=== PATIENT | male | born 1970 | race African-American/Black ===

== ENCOUNTER → 2017-06-03 | Outpatient (CLI) | payer OTHER ==
--- NOTE | 2017-06-03 15:06 | CT ---
EXAMINATION TYPE: CT abdomen pelvis wo con DATE OF EXAM: 06/03/2017 COMPARISON: NONE INDICATION: Rt flank pain DLP: 512.3 mGycm, Automated exposure control for dose reduction was used. CONTRAST: 0 mL of Omnipaque 350. Study performed without Oral Contrast TECHNIQUE: Axial images were obtained from above the diaphragm to the pubic rami in the axial plane a t 5 mm thick sections. Reconstructed images are reviewed on the computer in the coronal plane. FINDINGS: Limited CT sections are obtained the lung bases. The lung bases are clear. CT ABDOMEN: Liver: Normal Spleen: Normal Pancreas: Normal Adrenal glands: The adrenal glands are normal. Gallbladder: Normal Kidneys: No masses are evident. No hydronephrosis is present. No cysts are present. No renal stone s are identified. Aorta: Normal Inferior vena cava: Normal. CT PELVIS: Loops of bowel within the abdomen and pelvis are normal. Studies performed without oral contrast. Appendix: Normal as visualized. Urinary bladder: Normal. Genitourinary structures: Prostate is unremarkable. Osseous structures: No suspicious lytic or sclerotic lesions. There are couple small sclerotic lesion s superior to the left acetabulum could be bone islands. Facet degenerative changes within the lower lumbar spine. IMPRESSIONS: 1. No suspicious acute changes.
== END | disposition home or self-care (01) ==
LOC: RADCTMAIN 12:28
PROVIDERS: ATTEND Internal Medicine
DX: R10.9 Unspecified abdominal pain (principal)
CPT/HCPCS: 74176

== ENCOUNTER → 2017-07-07 | Outpatient (CLI) | payer OTHER ==
--- NOTE | 2017-07-07 18:04 | MR ---
EXAMINATION TYPE: MR lumbar spine wo con DATE OF EXAM: 07/07/2017 COMPARISON: NONE HISTORY: Low back pain CONTRAST: 0 mL intravenous Gadavist. TECHNIQUE: Multiplanar, multisequence images of the lumbar spine were acquired. FINDINGS: L5-S1: There is narrowing of the disc height. Disc desiccation is present. No focal disc herniation i s evident. Some disc bulge is present with contact with the exiting nerve roots. No thecal sac compre ssion is evident. Right neural foramen is patent. Right neural foramen has severe narrowing from face t and disc bulge. L4-L5: No significant disc bulge or disc herniation. No spinal canal stenosis. No foraminal stenosi s. Facet hypertrophy is present.. L3-L4: No disc bulge or herniation is evident. There is disc space narrowing and some disc desiccatio n No spinal canal stenosis. No foraminal stenosis. . L2-L3: No significant disc bulge or disc herniation. Disc desiccation is present. No spinal canal krystin nosis. No foraminal stenosis. . L1-L2: No significant disc bulge or disc herniation. No spinal canal stenosis. No foraminal stenosi s. . T12-L1: No significant disc bulge or disc herniation. No spinal canal stenosis. No foraminal stenos is. . IMPRESSION: 1. L5-S1 disc bulging with contact with the exiting nerve roots. There is severe left foraminal steno sis. Correlate with radicular symptoms. 2. Mild disc desiccation lower lumbar spine.
== END | disposition home or self-care (01) ==
LOC: RADMRIMAIN 14:00
PROVIDERS: ATTEND Internal Medicine
DX: M99.73 Connective tissue and disc stenosis of intervertebral foramina of lumbar region (principal); M51.27 Other intervertebral disc displacement, lumbosacral region
CPT/HCPCS: 72148

== ENCOUNTER 2021-10-17 21:22 | Emergency (ER) | payer OTHER ==
[2021-10-17 21:29] VITALS: BP 129/92; PULSE 65; RESP 18; TEMP 99.8
[2021-10-17] MEDS ORDERED: ASPIRIN 81 MG PO STA (21:39)
--- NOTE | 2021-10-17 21:43 | ED ---
Chest Pain HPI - General Chief Complaint: Chest Pain Stated Complaint: Chest pain Time Seen by Provider: 10/17/21 21:28 Source: patient Mode of arrival: ambulatory Limitations: no limitations - History of Present Illness Initial Comments: This patient's 50-year-old man who is having substernal pain that he describes as being "like a needle" that has been going on for the past 36 hours. The pain came on at rest and has not had any exertional component that he has noted. No associated symptoms. Patient has been a lifelong nonsmoker. MD Complaint: chest pain Onset/Timin -: hour(s) Onset: during rest Pain Location: substernal Pain Radiation: none Severity: moderate Quality: sharp ("Like a needle") Consistency: constant Improves With: nothing Worsens With: nothing Treatments Prior to Arrival: none - Related Data Home Medications Medication Instructions Recorded Confirmed Acetaminophen [Acetaminophen ER] 650 mg PO Q4H PRN MDD 3 TABS/24 HRS 10/17/21 10/17/21 Calc/Mag/Zinc/Yari D 1 tab PO DAILY PRN 10/17/21 10/17/21 Citalopram Hydrobromide 20 mg PO DAILY 10/17/21 10/17/21 [Citalopram HBr] Ibuprofen [Motrin Ib] 600 mg PO Q6H PRN 10/17/21 10/17/21 OLANZapine 5 mg PO BID 10/17/21 10/17/21 OLANZapine 10 mg PO HS 10/17/21 10/17/21 guaiFENesin [guaiFENesin Oral 200 mg PO Q4H PRN 10/17/21 10/17/21 Solution] lamoTRIgine [LaMICtal] 25 mg PO BID 10/17/21 10/17/21 traZODone HCL [Desyrel] 50 mg PO HS 10/17/21 10/17/21 Allergies Allergy/AdvReac Type Severity Reaction Status Date / Time No Known Allergies Allergy Verified 10/17/21 21:29 Review of Systems ROS Statement: Those systems with pertinent positive or pertinent negative responses have been documented in the HPI. ROS Other: All systems not noted in ROS Statement are negative. Constitutional: Denies: fever, chills Respiratory: Denies: cough, dyspnea Cardiovascular: Reports: chest pain. Denies: palpitations, orthopnea, edema, syncope Gastrointestinal: Denies: abdominal pain, nausea, vomiting Genitourinary: Denies: dysuria, hematuria Musculoskeletal: Denies: back pain Skin: Denies: rash Neurological: Denies: headache, weakness EKG Findings - EKG Comments: EKG Findings:: Possible right ventricular conduction delay - EKG Results: EKG: interpreted by BERNIE, sinus rhythm (Rate 62 bpm), normal axis, normal ST/T Past Medical History Past Medical History: Chest Pain / Angina History of Any Multi-Drug Resistant Organisms: None Reported Past Surgical History: No Surgical Hx Reported Past Psychological History: Bipolar Smoking Status: Never smoker Past Alcohol Use History: None Reported Past Drug Use History: Cocaine General Exam Limitations: no limitations General appearance: alert, in no apparent distress Head exam: Present: atraumatic, normocephalic Eye exam: Present: normal appearance Neck exam: Present: normal inspection Respiratory exam: Present: normal lung sounds bilaterally. Absent: respiratory distress, wheezes, rales, rhonchi, stridor Cardiovascular Exam: Present: regular rate, normal rhythm, normal heart sounds. Absent: systolic murmur, diastolic murmur, rubs, gallop GI/Abdominal exam: Present: soft. Absent: distended, tenderness, guarding, rebound, rigid, mass Extremities exam: Present: normal inspection, normal capillary refill. Absent: pedal edema, calf tenderness Back exam: Present: normal inspection. Absent: CVA tenderness (R), CVA tenderness (L) Neurological exam: Present: alert Skin exam: Present: warm, dry, intact, normal color. Absent: rash Course Vital Signs 10/17/21 21:25 Temperature 99.8 F H Pulse Rate 65 Respiratory 18 Rate Blood Pressure 129/92 O2 Sat by Pulse 95 Oximetry Disposition Clinical Impression: Chest pain Disposition: HOME SELF-CARE Condition: Good Instructions (If sedation given, give patient instructions): Chest Pain (ED) Is patient prescribed a controlled substance at d/c from ED?: No Referrals: Dima Kenney MD [Primary Care Provider] - 1-2 days Bautista Roque MD [STAFF PHYSICIAN] - 1-2 days Time of Disposition: 00:10
[2021-10-17 22:00] LABS: HCT 48.5 % (39.0-53.0); HGB 15.8 gm/dL (13.0-17.5); MCH 30.9 pg (25.0-35.0); MCHC 32.6 g/dL (31.0-37.0); Mean Platelet Volume 8.7; Platelet Count 198 k/uL (150-450); RBC 5.11 m/uL (4.30-5.90); RDW 14.5 % (11.5-15.5)
[2021-10-17 22:01] LABS: Albumin 4.2 g/dL (3.5-5.0); Calcium 9.2 mg/dL (8.4-10.2); Magnesium 1.9 mg/dL (1.6-2.3); Potassium 4.1 mmol/L (3.5-5.1); Total Bilirubin 0.3 mg/dL (0.2-1.3); Total Protein 7.4 g/dL (6.3-8.2)
[2021-10-17 22:10] LABS: Partial Thromboplastin Time 27.6 sec (22.0-30.0); Prothrombin Time 11.1 sec (9.0-12.0)
--- NOTE | 2021-10-17 22:22 | XR ---
EXAMINATION TYPE: XR chest 2V DATE OF EXAM: 10/17/2021 COMPARISON: NONE HISTORY: Chest pain TECHNIQUE: 2 views FINDINGS: Heart and mediastinum are normal. There is small area of atelectasis left lung base. There are no hilar masses. No pleural effusion. The bony thorax is intact. IMPRESSION: Mild subsegmental atelectasis left lung base. Normal heart.
[2021-10-17 22:26] LABS: Band Neutrophils % 2 %; Lymphocytes # (M) 2.65 k/uL (1.0-4.8); Neutrophils % (M) 25 %; Nucleated Red Blood Cells 0 /100 WBC (0-0); Total Cells Counted 100
== END 2021-10-18 | disposition home or self-care (01) ==
LOC: EC 21:22
DX: R07.89 Other chest pain (principal)
CPT/HCPCS: 36415; 71046; 80053; 83735; 84484; 85025; 85610; 85730; 93005

== ENCOUNTER 2021-11-25 22:07 | Inpatient (IN) | payer MEDICAID, OTHER ==
--- NOTE | 2021-11-25 22:45 | ED ---
General Adult HPI - General Chief complaint: Psychiatric Symptoms Stated complaint: Mental health eval Time Seen by Provider: 11/25/21 22:31 Source: patient, RN notes reviewed Mode of arrival: ambulatory Limitations: no limitations - History of Present Illness Initial comments: 51-year-old male presents to the emergency Department with complaints of dep ression and suicidal ideation. Patient states he ran out of his psychiatric medicines (Zyprexa & Lamictal) a month ago and has not been able to get them refilled. Patient states last week he walked out in traffic in an attempt to kill himself, however "chickened out" and was able to the injury. Patient states he continues to feel suicidal and has had thoughts of doing this again. Reports previous inpatient psychiatric hospitalizations at [facility] in June. Denies any medical complaints at this time. - Related Data Home Medications Medication Instructions Recorded Confirmed Acetaminophen [Acetaminophen ER] 650 mg PO Q4H PRN MDD 3 TABS/24 HRS 10/17/21 10/17/21 Calc/Mag/Zinc/Yari D 1 tab PO DAILY PRN 10/17/21 10/17/21 Citalopram Hydrobromide 20 mg PO DAILY 10/17/21 10/17/21 [Citalopram HBr] Ibuprofen [Motrin Ib] 600 mg PO Q6H PRN 10/17/21 10/17/21 OLANZapine 5 mg PO BID 10/17/21 10/17/21 OLANZapine 10 mg PO HS 10/17/21 10/17/21 guaiFENesin [guaiFENesin Oral 200 mg PO Q4H PRN 10/17/21 10/17/21 Solution] lamoTRIgine [LaMICtal] 25 mg PO BID 10/17/21 10/17/21 traZODone HCL [Desyrel] 50 mg PO HS 10/17/21 10/17/21 Allergies Allergy/AdvReac Type Severity Reaction Status Date / Time No Known Allergies Allergy Verified 10/17/21 21:29 Review of Systems ROS Statement: Those systems with pertinent positive or pertinent negative responses have been documented in the HPI. ROS Other: All systems not noted in ROS Statement are negative. Past Medical History Past Medical History: Chest Pain / Angina History of Any Multi-Drug Resistant Organisms: None Reported Past Surgical History: No Surgical Hx Reported Past Psychological History: Bipolar Smoking Status: Never smoker Past Alcohol Use History: None Reported Past Drug Use History: Cocaine General Exam Limitations: no limitations (Well-developed, well-nourished male in no acute distress. Initial temperature 98.2, pulse 89, respirations 18, blood pressure 164/102, pulse ox 97% on room air.) General appearance: alert, in no apparent distress Head exam: Present: atraumatic, normocephalic ENT exam: Present: normal exam, normal oropharynx, mucous membranes moist Neck exam: Present: normal inspection, full ROM Respiratory exam: Present: normal lung sounds bilaterally. Absent: respiratory distress, wheezes, rales, rhonchi, stridor Cardiovascular Exam: Present: regular rate, normal rhythm, normal heart sounds. Absent: systolic murmur, diastolic murmur, rubs, gallop, clicks GI/Abdominal exam: Present: soft, normal bowel sounds. Absent: distended, tend erness, guarding, rebound, rigid Extremities exam: Present: normal inspection, full ROM, normal capillary refill. Absent: tenderness, pedal edema, joint swelling, calf tenderness Back exam: Absent: CVA tenderness (R), CVA tenderness (L) Neurological exam: Present: alert, oriented X3, CN II-XII intact, normal gait Psychiatric exam: Present: flat affect Skin exam: Present: warm, dry, intact, normal color Course Vital Signs 11/25/21 11/26/21 22:16 02:12 Temperature 98.2 F 97.9 F Pulse Rate 89 72 Respiratory 18 16 Rate Blood Pressure 164/102 131/64 O2 Sat by Pulse 97 98 Oximetry Medical Decision Making - Medical Decision Making This is a 51-year-old male who presents to the emergency department requesting psychiatric evaluation due to suicidal ideations. Patient does have a history of previous suicide attempts and reports worsening depression. His physical exam findings are unremarkable. Patient is cooperative with plan of care and was assessed by EPS who recommend inpatient psychiatric hospitalization. Attending: [place] - Lab Data Result diagrams: 11/26/21 14:12 11/26/21 14:12 Lab Results 11/26/21 Range/Units 00:25 Coronavirus (PCR) Not Detected (Not Detectd) Disposition Clinical Impression: Suicidal ideation Disposition: TRANSFER TO PSYCH HOSP/UNIT Condition: Serious Is patient prescribed a controlled substance at d/c from ED?: No Decision Date: 11/26/21 Decision Time: 02:39
[2021-11-26] MEDS ORDERED: MAG HYDROX/AL HYDROX/SIMETH 30 ML CUP PO PRN (02:13)
[2021-11-26] MEDS ORDERED: MAGNESIUM HYDROXIDE 2,400 MG/10 ML CUP PO PRN (02:13)
[2021-11-26] MEDS ORDERED: LORazepam 1 MG TAB PO PRN (02:13)
[2021-11-26] MEDS ORDERED: ACETAMINOPHEN TAB 325 MG TAB PO PRN (02:13)
[2021-11-26] MEDS ORDERED: HALOPERIDOL LACTATE 5 MG/ML 1 ML VIAL IM PRN (02:13)
[2021-11-26] MEDS ORDERED: LORazepam 2 MG/ML INJ IM PRN (02:17)
[2021-11-26] MEDS ORDERED: haloperidoL 5 MG TAB PO PRN (02:18)
[2021-11-26] MEDS ORDERED: CITALOPRAM HYDROBROMIDE 20 MG TAB PO STA (10:21)
--- NOTE | 2021-11-26 13:55 | P.HP ---
Psychiatric H&P - . H&P Date: 11/26/21 History & Physical: Allergies Allergy/AdvReac Type Severity Reaction Status Date / Time No Known Allergies Allergy Verified 10/17/21 21:29 Vital Signs Temp 98.0 F 11/26/21 03:17 Pulse 80 11/26/21 03:17 Resp 18 11/26/21 03:17 BP 132/85 11/26/21 03:17 Pulse Ox 98 11/26/21 02:12 FiO2 Intake & Output 11/25/21 11/26/21 11/26/21 18:59 06:59 18:59 Weight 99 kg Laboratory Last Values Coronavirus (PCR) Not Detected (Not Detectd) 11/26/21 00:25 11/26/21 13:55 IDENTIFYING DATA: Patient is a , unemployed, 51-year-old -[place] male with significant history of depression and cocaine use who presents to the hospital for suicidal ideation with a plan to walk into traffic. HPI: Patient presented to the hospital on 11/24/2021, brought into the hospital on his own volition for suicidal ideation and auditory hallucinations. As per CPS report, the patient reported that his younger brother this past May. He reports that prior to that, he was in a relationship which ended. The patient reported also [place] himself [place] 11/09/2019 2:[address] He reports that he quit his job and has been expressing auditory hallucinations telling him that he is worthless. Patient was recently in [place] for 21 days and was discharged to a three quarter house on 10/24/2021. He signed himself voluntarily into the psychiatric unit. The patient reports that for the last 2 weeks he has been feeling like his "life is falling apart." He reports that his biggest stressors is his current homelessness, his relationship that ended earlier this year, and the of his brother this past May. He reports that the relationship ending is probably the biggest stressor going on for him at this time. He reports that they're together for 5 years and that he is feeling significant grief over the loss of this relationship. In regards to depressive symptoms, the patient does report low motivation, anhedonia, decreased appetite, and decreased energy. He does report suicidal ideation and does admit to previously attempting suicide this past October by walking into traffic. In regards to other psychotic symptoms, the patient does endorse auditory and visual hallucinations. He reports that he has been seeing "my girlfriend all over the place." He also reports that he has been having command type hallucinations telling him to hurt himself. He is otherwise denying any paranoia or other delusions. The patient does endorse significant history of substance use. He reports that he has been engaging crack cocaine use and went to [facility] for this. He reports that his last use was in September. PAST PSYCHIATRIC HISTORY: Patient states that he has been previously diagnosed with bipolar disorder. And patient recalls being prescribed previous regimens of Lamictal and Celexa. The patient reports previous psychiatric hospitalizations at [facility] and at [facility] in [place]. The patient reports that he was going to follow with [facility] however missed his intake appointment. The patient reports 3 prior suicide attempts. PMH: No reported medical history ALLERGIES: NO KNOWN DRUG ALLERGIES CHEMICAL DEPENDENCY HISTORY: Patient denies any tobacco, alcohol, marijuana, or recent illicit drug use. He states he last used crack cocaine on October 03. He was in [place] for rehabilitation and was discharged to a three-quarter house. FAMILY PSYCHIATRIC/SUBSTANCE USE HISTORY: He suspects that his mother has some sort of mental illness. SOCIAL HISTORY: Patient was born and raised in [place], [place]. He has been living in a three-quarter house since October. He is as of 15 years ago. He recently broke up with a girlfriend after being with her for 5 years. He reports that he is Bahai. He denies any legal history, service, or any past traumatic history. He reports that growing up was "happy." MENTAL STATUS EXAM: General Appearance: Patient appears to be stated age is alert, directable, and attempts to cooperate. Patient appears to have good hygiene and grooming. Bald with a montiel and wearing glasses. Behavior: Patient is seated without any agitated behavior. Eye contact is appropriate. Speech: Patient's speech is fluent and nonpressured. Mood/Affect: Patient reports their mood is depressed, affect is congruent and constricted. Suicidality/Homicidality: Patient denies having any homicidal ideation intent or plan. Patient endorses suicidal ideation. Perceptions: Patient denies any visual hallucinations but endorses auditory hallucinations. Though content/process: There is no evidence of any delusional thought content and thought process is linear and goal-directed. Memory and concentration: AOX3, grossly intact for the purposes of this session. Can spell "WORLD" backwards Judgment and insight: Fair STRENGTHS/WEAKNESSES: Strengths that the patient is resilient and has a supportive family. Weakness is that the patient engages in substance use. He is also currently homeless. INTELLECT: average IMPRESSIONS: Major depressive disorder, recurrent, severe, with psychotic features Cocaine use disorder PLAN: -Patient is admitted under voluntary status to MHU for stabilization of psychiatric symptoms and safety. Patient signed adult voluntary form and medication consent and is placed in patient's chart. -Medications : Will start patient on Celexa 20 mg by mouth daily for depression/anxiety with plans to increase to 30 mg tomorrow Topamax 25 mg daily at bedtime for mood augmentation and off label use for mood stabilization -Ativan and Haldol PRN for agitation/aggression -CIWA protocol with Ativan PRN for ETOH withdrawal -Patient was counselled on substance abuse and desired to cut back on use -Patient was informed of the risks, benefits and side effects of the medication and patient verbally consented to taking the medications. Patient signed med consent form and was placed in chart. -Internal Medicine consult to perform medical evaluation and physical. -SW on board for discharge planning. Encourage patient to participate in groups to work on coping skills.
[2021-11-26 14:38] LABS: Basophils # (A) 0.1 k/uL (0-0.2); Basophils % (A) 1 %; Eosinophils # (A) 0.3 k/uL (0-0.7); Eosinophils % (A) 5 %; HCT 50.3 % (39.0-53.0); HGB 15.9 gm/dL (13.0-17.5); Hypochromasia Slight; Lymphocytes # (A) 2.4 k/uL (1.0-4.8); Lymphocytes % (A) 38 %; MCH 30.3 pg (25.0-35.0); MCHC 31.7 g/dL (31.0-37.0); MCV 95.6 fL (80.0-100.0); Mean Platelet Volume 8.1; Monocytes # (A) 0.5 k/uL (0-1.0); Monocytes % (A) 8 %; Neutrophils % (A) 47 %; Platelet Count 225 k/uL (150-450); RBC 5.26 m/uL (4.30-5.90); RDW 14.3 % (11.5-15.5); WBC 6.4 k/uL (3.8-10.6)
[2021-11-26 14:51] LABS: ALT 24 U/L (4-49); AST 36 U/L (17-59); African American GFR (CKD) 67 (>60 ml/min/1.73 sqM); Alkaline Phosphatase 52 U/L (38-126); Anion Gap 8 mmol/L; Blood Urea Nitrogen 9 mg/dL (9-20); Calcium 9.2 mg/dL (8.4-10.2); Carbon Dioxide 30 mmol/L (22-30); Chloride 100 mmol/L (98-107); Glucose 105 mg/dL (74-99); Non-African American GFR(CKD) 58 (>60 ml/min/1.73 sqM); Potassium 4.2 mmol/L (3.5-5.1); Sodium 138 mmol/L (137-145); Total Bilirubin 0.5 mg/dL (0.2-1.3); Total Protein 7.1 g/dL (6.3-8.2)
[2021-11-26] MEDS: TOPIRAMATE 25 MG TAB PO SCH (23:32)
--- NOTE | 2021-11-27 00:50 | P.PN ---
Progress Note - Text Progress Note Date: 11/26/21 Attempted to see the patient in the mental health unit at 2100 on 11/26. The patient refused to be seen or evaluated.
[2021-11-27 02:46] LABS: Chol/HDL Ratio 4.11 Ratio; LDL Cholesterol,Calculated 123.4 mg/dL (0.0-131.0); VLDL Calculation 19.58 mg/dL (5.00-40.00)
[2021-11-27] MEDS ORDERED: CITALOPRAM HYDROBROMIDE 10 MG TAB PO SCH (09:00)
[2021-11-27] MEDS ORDERED: TOPIRAMATE 25 MG TAB PO STA (10:20)
--- NOTE | 2021-11-27 11:06 | P.PN ---
Progress Note - Text Progress Note Date: 11/27/21 Interval History: Patient was seen resting in bed and was directable and agreeable to speak with music writer in the office., The patient continues to endorse significant symptoms of depression. He reports that he is uncertain what he is going to do with his life after discharge. He continues to endorse suicidal ideation with plan to walk into traffic. He has been adherent with his medication but did not take Topamax last night. He reports that he was not informed to take the medication however it is noted that he has refused medication. He is agreeable to taking the medication today. The patient is otherwise not reporting any homicidal ideation. He reports no auditory or visual hallucinations. He denies any paranoia or other delusions. Of note, the patient continues to deny any substance use however refused to give an adequate urine sample for testing. It was determined that the urine that was sent to the lab was apple juice instead. Mental Status Exam: General Appearance: Patient appears to be stated age is alert, directable, and cooperative. Behavior: Patient is calmly seated without any agitated behavior. Tearful during the interview. Speech: Patient's speech is fluent and nonpressured. Mood/Affect: Mood is depressed and affect is congruent and tearful. Suicidality/Homicidality: Patient endorses suicidal ideation however denies any homicidal ideation. Perceptions: Patient denies any visual hallucinations and denies any auditory hallucinations Though content/process: There is no evidence of any delusional thought content and thought process is linear and goal-directed. Memory and concentration: AOX3, grossly intact for the purposes of this session Judgment and insight: Improving mildly Vital Signs Temp 97.9 F 11/27/21 06:53 Pulse 57 L 11/27/21 06:53 Resp 16 11/27/21 06:53 BP 132/68 11/27/21 06:53 Pulse Ox 98 11/27/21 06:53 FiO2 Assessment Major depressive disorder, recurrent, severe, with psychotic features Cocaine use disorder Plan: -Patient continues to meet criteria for inpatient psychiatric admission for symptom stabilization and safety. Patient has signed adult voluntary form and medication consent and was placed in patient's chart. -Medications: Increase Celexa to 30 mg by mouth daily for depression/anxiety with plans to increase to 40 mg tomorrow. Start Topamax 25 mg by mouth twice a day for augmentation today. -When necessary Ativan and Haldol for agitation/aggression. -SW on board for discharge planning. Encouraged the patient to participate in milieu.
[2021-11-27] MEDS: TOPIRAMATE 25 MG TAB PO SCH (20:44)
--- NOTE | 2021-11-28 01:13 | P.CONS ---
History of Present Illness - Reason for Consult Consult date: 11/27/21 - History of Present Illness Patient is a 48-year-old m the patient is a 51-year-old male with a PMH of bipolar disorder and remote history of substance use who presented to the emergency room with complaints of depression. The patient was admitted to the mental health unit where he was seen and evaluated. He reports that he has been off his medications for about a month, and that his depressive thoughts were gradually worsening, which prompted him to come to the emergency room. He denied using illicit substances, alcohol, or tobacco. He does report a distant history of cocaine use but reports that he has been sober for several years. Denied any physical complaints at the time of interview. He denied experiencing chest discomfort, shortness of breath, fever, chills, cough, nausea, vomiting, abdominal pain, diarrhea. Laboratory evaluation was remarkable for creatinine 1.38. Review of systems: Pertinent positives and negatives as discussed in HPI, a complete review of systems was performed and all other systems are negative. Physical examination: General: non toxic, no distress, appears at stated age, overweight Derm: no unusual rashes/lesions, no unusual ecchymoses, warm, dry Head: atraumatic, normocephalic, symmetric Eyes: EOMI, no lid lag, anicteric sclera ENT: Nose and ears atraumatic, no thrush, no pharyngeal erythema Neck: trachea midline, supple Mouth: no lip lesion, mucus membranes moist Cardiovascular: S1S2 reg, no murmur, no edema Lungs: CTA bilateral, no rhonchi, no rales , no accessory muscle use Abdominal: soft, nontender to palpation, no guarding Ext: no gross muscle atrophy, no contractures, Neuro: No gross focal neuro deficits noted Psych: Alert, oriented, appropriate affect Assessment/plan Kidney disease, acute versus chronic -Encourage oral hydration Depression -As per psychiatry Thank you for allowing us to participate in the care of this patient. We will follow peripherally. Do not hesitate to contact us with questions. Someone can be reached from the [facility] hospitalist group at all hours of the day at [phone]. Past Medical History Past Medical History: Chest Pain / Angina History of Any Multi-Drug Resistant Organisms: None Reported Past Surgical History: No Surgical Hx Reported Past Psychological History: Bipolar Smoking Status: Never smoker Past Alcohol Use History: None Reported Past Drug Use History: Cocaine - Past Family History Father Family Medical History: COPD Medications and Allergies Home Medications Medication Instructions Recorded Confirmed Type Acetaminophen [Acetaminophen ER] 650 mg PO Q4H PRN MDD 3 TABS/24 HRS 10/17/21 10/17/21 History Calc/Mag/Zinc/Yari D 1 tab PO DAILY PRN 10/17/21 10/17/21 History Citalopram Hydrobromide 20 mg PO DAILY 10/17/21 10/17/21 History [Citalopram HBr] Ibuprofen [Motrin Ib] 600 mg PO Q6H PRN 10/17/21 10/17/21 History OLANZapine 5 mg PO BID 10/17/21 10/17/21 History OLANZapine 10 mg PO HS 10/17/21 10/17/21 History guaiFENesin [guaiFENesin Oral 200 mg PO Q4H PRN 10/17/21 10/17/21 History Solution] lamoTRIgine [LaMICtal] 25 mg PO BID 10/17/21 10/17/21 History traZODone HCL [Desyrel] 50 mg PO HS 10/17/21 10/17/21 History Allergies Allergy/AdvReac Type Severity Reaction Status Date / Time No Known Allergies Allergy Verified 10/17/21 21:29 Physical Exam Vitals: Vital Signs Temp Pulse Resp BP Pulse Ox 11/27/21 06:53 97.9 F 57 L 16 132/68 98 Results CBC & Chem 7: 11/26/21 14:12 11/26/21 14:12
[2021-11-28] MEDS: CITALOPRAM HYDROBROMIDE 20 MG TAB PO SCH (09:42)
--- NOTE | 2021-11-28 11:47 | P.PN ---
Progress Note - Text Progress Note Date: 11/28/21 Interval History: Patient was seen resting in bed and was directable and agreeable to speak with technical document writer in the office. The patient reports he is feeling a little better. However, he continues to endorse suicidal ideation and ruminating thoughts about "what is the point." He expresses some thoughts of walking into traffic. He does however report more future orientation about going to [facility] upon discharge. He does reports an improvement in sleep and appetite. He denies any h omicidal ideation, intention, and/or plan. He reports no paranoia or other delusions. He has been adherent with his medications and denies any side effects. Mental Status Exam: General Appearance: Patient appears to be stated age is alert, directable, and cooperative. Behavior: Patient is calmly seated without any agitated behavior. Eye contact is appropriate. Speech: Patient's speech is fluent and nonpressured. Monotone. Mood/Affect: Mood is depressed and affect is congruent and constricted. Suicidality/Homicidality: Patient endorses suicidal ideation however denies any homicidal ideation. Perceptions: Patient denies any visual hallucinations and denies any auditory hallucinations Though content/process: There is no evidence of any delusional thought content and thought process is linear and goal-directed. Memory and concentration: AOX3, grossly intact for the purposes of this session Judgment and insight: Improving mildly Vital Signs Temp 98.1 F 11/28/21 06:41 Pulse 75 11/28/21 09:44 Resp 16 11/28/21 06:41 BP 121/77 11/28/21 06:41 Pulse Ox 98 11/28/21 06:41 FiO2 Assessment Major depressive disorder, recurrent, severe, with psychotic features Cocaine use disorder Plan: -Patient continues to meet criteria for inpatient psychiatric admission for symptom stabilization and safety. Patient has signed adult voluntary form and medication consent and was placed in patient's chart. -Medications: Increase Celexa to 40 mg by mouth daily for depression/anxiety with plans to increase to 40 mg tomorrow. Increase Topamax to 50 mg at bedtime for off-label mood stabilization -When necessary Ativan and Haldol for agitation/aggression. -SW on board for discharge planning. Encouraged the patient to participate in milieu.
[2021-11-28] MEDS: TOPIRAMATE 25 MG TAB PO SCH (21:27)
[2021-11-29] MEDS: CITALOPRAM HYDROBROMIDE 20 MG TAB PO SCH (09:00)
--- NOTE | 2021-11-29 12:46 | P.PN ---
Progress Note - Text Progress Note Date: 11/29/21 Interval History: Patient was directable and agreeable to speak with telegraphic typewriter mechanic in the office. The patient reports he is doing well, no complaints today. He denies suicidal ideation, plan or intent. He denies HI, plan or intent. He reports no paranoia or other delusions. He has been compliant with his medications and denies any side effects. Mental Status Exam: General Appearance: Patient appears to be stated age, is dressed in clean/casual attire, good hygiene. Orientation: Alert and oriented to person, place, time and situation. Behavior: Patient is calmly seated without any agitated behavior. Eye contact is appropriate. Speech: Patient's speech is fluent and non-pressured. Mood/Affect: Mood is stable and affect is congruent and constricted. Suicidality/Homicidality: Patient denies any suicidal or homicidal ideation, plan or intent. Perceptions: Patient denies any visual hallucinations and denies any auditory hallucinations. Though content/process: There is no evidence of any delusional thought content and thought process is linear and goal-directed. Memory and concentration: Grossly intact for the purposes of this session Judgment and insight: Improving Vital Signs (72 hours) 11/27/21 11/28/21 11/28/21 06:53 06:41 09:44 Temperature 97.9 F 98.1 F Pulse Rate [ 57 L 55 L 75 Right] Respiratory 16 16 Rate Blood Pressure 132/68 121/77 [Left Arm] O2 Sat by Pulse 98 98 Oximetry 11/29/21 07:01 Temperature 97.5 F L Pulse Rate [ 58 L Right] Respiratory Rate Blood Pressure 120/58 [Left Arm] O2 Sat by Pulse Oximetry Assessment Major depressive disorder, recurrent, severe, with psychotic features Cocaine use disorder Plan: -Patient continues to meet criteria for inpatient psychiatric admission for symptom stabilization and safety. Patient has signed adult voluntary form and medication consent and was placed in patient's chart. He plans to go to [facility] after discharge for substance abuse treatment. -Medications: Continue Celexa 40 mg by mouth daily for depression/anxiety. Continue Topamax 50 mg at bedtime for off-label mood stabilization. -When necessary Ativan and Haldol for agitation/aggression. -Encouraged the patient to participate in milieu.
[2021-11-29] MEDS: TOPIRAMATE 25 MG TAB PO SCH (20:39)
[2021-11-30] MEDS: CITALOPRAM HYDROBROMIDE 20 MG TAB PO SCH (08:56)
--- NOTE | 2021-11-30 14:55 | P.PN ---
Progress Note - Text Progress Note Date: 11/30/21 Interval History: Patient was seen laying in his room and was agreeable to speak with this verse writer. The patient reports he is doing well, no complaints today. He reports good mood, sleep and appetite. He denies suicidal ideation, plan or intent. He denies HI, plan or intent. He reports no paranoia or other delusions. He has been compliant with his medications and denies any side effects. He states he called [facility] and reports the entry driver operator will pick him up tomorrow at 1pm to transport him there for substance abuse treatment. Mental Status Exam: General Appearance: Patient appears to be stated age, is dressed in clean/casual attire, good hygiene. Orientation: Alert and oriented to person, place, time and situation. Behavior: Patient is calm without any agitated behavior. Eye contact is appropriate. Speech: Patient's speech is fluent and non-pressured. Mood/Affect: Mood is stable and affect is congruent and constricted. Suicidality/Homicidality: Patient denies any suicidal or homicidal ideation, plan or intent. Perceptions: Patient denies any visual hallucinations and denies any auditory hallucinations. Though content/process: There is no evidence of any delusional thought content and thought process is linear and goal-directed. Memory and concentration: Grossly intact for the purposes of this session Judgment and insight: Improving Vital Signs (72 hours) 11/27/21 11/28/21 11/28/21 06:53 06:41 09:44 Temperature 97.9 F 98.1 F Pulse Rate [ 57 L 55 L 75 Right] Respiratory 16 16 Rate Blood Pressure 132/68 121/77 [Left Arm] O2 Sat by Pulse 98 98 Oximetry 11/29/21 07:01 Temperature 97.5 F L Pulse Rate [ 58 L Right] Respiratory Rate Blood Pressure 120/58 [Left Arm] O2 Sat by Pulse Oximetry Assessment Major depressive disorder, recurrent, severe, with psychotic features Cocaine use disorder Plan: -Patient continues to meet criteria for inpatient psychiatric admission for symptom stabilization and safety. He plans to go to [facility] after discharge for substance abuse treatment. -Medications: Continue Celexa 40 mg by mouth daily for depression/anxiety. Continue Topamax 50 mg at bedtime for off-label mood stabilization. -When necessary Ativan and Haldol for agitation/aggression. -Encouraged the patient to participate in milieu.
[2021-11-30] MEDS: TOPIRAMATE 25 MG TAB PO SCH (20:17)
[2021-12-01 06:44] VITALS: BP 142/75; PULSE 52; RESP 16; TEMP 97.9
[2021-12-01] MEDS: CITALOPRAM HYDROBROMIDE 20 MG TAB PO SCH (08:15)
== END 2021-12-01 13:06 | DRG 885 ==
LOC: EC 22:07 → 3MHU 11-26 02:08
PROVIDERS: ADMIT Psychiatry & Neurology Psychiatry; ATTEND Psychiatry & Neurology Psychiatry
DX: F33.3 Major depressive disorder, recurrent, severe with psychotic symptoms (principal); R45.851 Suicidal ideations; F14.10 Cocaine abuse, uncomplicated; Z20.822 Contact with and (suspected) exposure to COVID-19; Z28.310 Unvaccinated for COVID-19; F41.9 Anxiety disorder, unspecified; N28.9 Disorder of kidney and ureter, unspecified; Z79.899 Other long term (current) drug therapy; Z91.51 Personal history of suicidal behavior; Z59.00 Homelessness unspecified; Z56.0 Unemployment, unspecified; Z71.51 Drug abuse counseling and surveillance of drug abuser; Z82.5 Family history of asthma and other chronic lower respiratory diseases
CPT/HCPCS: 80053; 80061; 82075; 83036; 84443; 85025; 87635; 99285